=== PATIENT | male | born 1950 | race Caucasian/White ===

== ENCOUNTER 2020-03-27 14:58 | Emergency (ER) | payer MEDICARE, OTHER, SELFPAY ==
--- NOTE | 2020-03-27 15:07 | ED.WOUNDLAC ---
HPI - Wound/Laceration General Chief Complaint: Wound/Laceration Stated Complaint: Laceration Time Seen by Provider: 03/27/20 15:08 Source: patient and RN notes reviewed History of Present Illness HPI narrative: Patient is a 69-year-old male who presents the urgent care with complaints of a laceration to the top of the left hand. Patient states that he was cutting wire, his hand slid and he cut the top of his hand on a piece of sheet metal. Patient states he is up-to-date on her tetanus which she received approximately 2 years ago. Patient states that the area has bled due to being on Plavix. Denies of any known injuries. Patient was not wearing gloves at the time of the incident. No other acute complaints. No acute distress noted. Patient aware of the plan of care. Some parts of this dictation were generated by voice recognition software and may contain typographical and/or grammatical inaccuracies. Related Data Home Medications Medication Instructions Recorded Confirmed Plavix 03/27/20 Unable to Obtain Home Medications 03/27/20 03/27/20 atorvastatin 03/27/20 losartan 03/27/20 Allergies Allergy/AdvReac Type Severity Reaction Status Date / Time bupropion Allergy Unknown THROAT Verified 07/07/16 11:08 SWELLING guaifenesin Allergy Unknown Verified 07/07/16 09:38 lisinopril Allergy Unknown Verified 03/17/18 09:13 pravastatin AdvReac Unknown Verified 07/07/16 09:38 quinapril AdvReac Unknown Verified 07/07/16 09:38 Review of Systems Review of Systems: Narrative: CONSTITUTIONAL: Denies fever, chills, or sweats. EYES: Denies visual changes, redness, or discharge. ENT: Denies rhinorrhea, congestion, sore throat, or otalgia. CARDIOVASCULAR: Denies chest pain, palpitations, or edema. RESPIRATORY: Denies cough or dyspnea. GASTROINTESTINAL: Denies abdominal pain, nausea, vomiting, or diarrhea. GENITOURINARY: Denies dysuria or hematuria. SKIN: Reports of a laceration to the left hand MUSCULOSKELETAL: Denies back pain, joint pain, or myalgia. NEUROLOGIC: Denies headache, numbness, or weakness. All other systems reviewed are negative, except as documented in HPI. [facility] Social History Social History Smoking status: Former smoker Alcohol intake: never Comments At the time of my signature, I reviewed and agree with the nursing past medical, surgical, social, and family history. There is no relevant family history pertinent to the patient complaint. Exam Narrative: Exam Narrative: GENERAL: This is a well-nourished, well-developed patient, in no apparent distress. HEAD: normocephalic, atraumatic. EYES: PERRL. Sclera clear/white. Vision is grossly intact. EARS: External ears normal NOSE: External nose normal with no obvious nasal discharge, nares without redness, no rhinorrhea. THROAT: Mucous membranes moist NECK: Neck supple SKIN: 1 cm abrasion to the ulnar/dorsal aspect of the left hand, noncomplicated superficial 2 cm linear laceration to the dorsal aspect of the left hand. Warm, intact with no suspicious lesions or rash, good texture and turgor. NEURO: awake, alert, and oriented to person, place and time. There were no obvious focal neurologic abnormalities. EXTREMITIES: No clubbing, cyanosis, or edema. Positive strong left radial pulse with capillary refill less than 2 seconds. Range of motion to left upper extremity within normal limits. Course Vital Signs Vital signs: Vital Signs Temperature 97.5 F L 03/27/20 15:12 Pulse Rate 65 03/27/20 15:12 Respiratory Rate 16 03/27/20 15:12 Blood Pressure 181/78 H 03/27/20 15:12 Pulse Oximetry 98 03/27/20 15:12 Temperature 97.5 F L 03/27/20 15:12 Pulse Rate 65 03/27/20 15:12 Respiratory Rate 16 03/27/20 15:12 Blood Pressure 181/78 H 03/27/20 15:12 Pulse Oximetry 98 03/27/20 15:12 Reviewed?patient is informed that they may have pre-hypertension or hypertension based on a blood pressure reading in the department. I recommend t
[2020-03-27 15:12] VITALS: BP 181/78; PULSE 65; RESP 16; TEMP 36.4; O2SAT 98
== END 2020-03-27 15:30 | disposition home or self-care (01) ==
PROVIDERS: Emergency Provider Nurse Practitioner Family; PCP Internal Medicine
DX: S61.412A Laceration without foreign body of left hand, initial encounter (principal); W26.8XXA Contact with other sharp object(s), not elsewhere classified, initial encounter; Z87.891 Personal history of nicotine dependence; I10 Essential (primary) hypertension
CPT/HCPCS: 12001; 99212; G0463

== ENCOUNTER 2021-11-12 11:07 | Emergency (ER) | payer MEDICARE, OTHER, SELFPAY ==
[2021-11-12 11:14] VITALS: BP 141/68; PULSE 84; RESP 16; TEMP 36.6; O2SAT 99
[2021-11-12 11:17] VITALS: BP 141/68; PULSE 84; RESP 16; TEMP 36.6; O2SAT 99
--- NOTE | 2021-11-12 11:21 | ED.EXTPRO ---
HPI - Extremity Problem General Chief complaint: Extremity Problem,Nontraumatic Stated complaint: Lump on right leg Time Seen by Provider: 11/12/21 11:21 Mode of arrival: ambulatory Limitations: no limitations History of Present Illness HPI Narrative: 71-year-old male presents with concern for a lump near his his right knee that he noticed this morning. He reports he is concerned it could be a blood clot, he relayed this to his doctor's office who advised him to go to the emergency room. He reports it is tender when touched, otherwise denies pain, redness, swelling. He denies injury or trauma. He reports he has had some recent knee discomfort without injury. He denies calf pain, redness, swelling. MD Complaint: other (Nodule) Related Data Home Medications Medication Instructions Recorded Confirmed Plavix 03/27/20 atorvastatin 03/27/20 losartan 03/27/20 Flomax 11/12/21 Lipitor 11/12/21 Paxil 11/12/21 Protonix 11/12/21 Spiriva with HandiHaler 11/12/21 Allergies Allergy/AdvReac Type Severity Reaction Status Date / Time bupropion Allergy Unknown THROAT Verified 07/07/16 11:08 SWELLING guaifenesin Allergy Unknown Verified 07/07/16 09:38 lisinopril Allergy Unknown Verified 03/17/18 09:13 pravastatin AdvReac Unknown Verified 07/07/16 09:38 quinapril AdvReac Unknown Verified 07/07/16 09:38 Review of Systems Review of Systems: CONSTITUTIONAL: Denies malaise, chills, sweats, or fever. CARDIOVASCULAR: Denies chest pain, palpitations, or edema. RESPIRATORY: Denies cough or dyspnea. SKIN: Denies rash or itching, redness, warmth, laceration or abrasion MUSCULOSKELETAL: Denies current knee pain. Reports a nodule on the medial aspect of his right knee that is tender when touched otherwise is not painful NEUROLOGIC: Denies numbness, weakness, or headache. All systems reviewed & are unremarkable except as noted in HPI and below PMFSH Social History Social History Smoking status: Former smoker Alcohol intake: never Comments At time of signature, agree with nursing past medical, surgical, social and family history. There is no relevant family history pertinent to the presenting complaint Exam Narrative: GENERAL: Well-appearing, well-nourished, and in no acute distress. HEAD: Normocephalic, atraumatic. EYES: PERRLA, conjunctivae clear NECK: Supple. CHEST: Speaks in full sentences. No respiratory distress. HEART: Regular rate and rhythm. Normal and equal peripheral pulses. EXTREMITIES: Right knee has normal strength and sensation, grossly normal range of motion. No edema or ecchymosis. 5/5 strength with knee flexion and extension. Normal sensation with sensitivity to light touch and pain. No point tenderness. No calf tenderness, redness, warmth. Noopen wounds, no skin tenting, no devitalized tissue or atrophy, no trophic changes, no obvious deformity, alignment normal, nearby joints and structures intact. Distal pulses palpable and equal bilaterally, skin warm, dry, pink. Capillary refill less than 3 seconds. SKIN: Warm, dry, no rash, no open skin Palpable firm nodule noted to the medial knee, tender to touch, no redness, warmth noted. NEURO: Alert and oriented x3. PSYCH: Normal mood and affect Course Course Emergency Course: Patient is aware of diagnosis, understands and agrees to treatment plan. Anticipatory guidance given. Patient agrees to follow-up as directed and is aware of reasons to seek care at the emergency department. Portions of this record may have been created with voice recognition software Level of Care: Express Care Visit Vital Signs Vital signs: Vital Signs Temperature 97.8 F 11/12/21 11:14 Pulse Rate 84 11/12/21 11:14 Respiratory Rate 16 11/12/21 11:14 Blood Pressure 141/68 H 11/12/21 11:14 Pulse Oximetry 99 11/12/21 11:14 Temperature 97.8 F 11/12/21 11:17 Pulse Rate 84 11/12/21 11:17 Respiratory Rate 16 11/12/21 11:17 Blood Pressure 1
== END 2021-11-12 11:33 | disposition home or self-care (01) ==
PROVIDERS: Emergency Provider Nurse Practitioner; PCP Internal Medicine
DX: R22.42 Localized swelling, mass and lump, left lower limb (principal); Z87.891 Personal history of nicotine dependence; I10 Essential (primary) hypertension
CPT/HCPCS: 99211; G0463